=== PATIENT | male | born 1950 | race Caucasian/White ===

== ENCOUNTER 2020-08-12 11:31 | Inpatient (IN) | payer OTHER ==
[~2020-08-12] VITALS: Ht 170.2 cm; Wt 90.7 kg
[2020-08-12] MEDS ORDERED: COZAAR100 MG (11:46)
[2020-08-12] MEDS ORDERED: METFORMIN HCL1000 M2 (11:46)
[2020-08-12] MEDS ORDERED: GLIPIZIDE XL10 MG (11:46)
[2020-08-12] MEDS ORDERED: LANTUS SOL100 UNIT/1 (11:47)
[2020-08-12] MEDS ORDERED: LIPITOR40 M1 (11:47)
[2020-08-12] MEDS ORDERED: HUMALOG100 UNIT/2 (11:47)
[2020-08-12] MEDS ORDERED: PROTONIX20 MG (11:47)
[2020-08-30] MEDS ORDERED: Lantus 1000 UNITS/10 SUBCUTANEO (18:28)
[2020-08-30] MEDS ORDERED: METFORMIN HCL1000 M2 PO (18:28)
[2020-08-30] MEDS ORDERED: INTESTINEX680 M1 PO (18:28)
[2020-08-30] MEDS ORDERED: HUMALOG100 UNIT/1 SUBCUTANEO ×3 (18:28)
[2020-08-30] MEDS ORDERED: CARdura 4MG TABLET PO (18:28)
[2020-08-30] MEDS ORDERED: NASAL MIST126 ML NASAL (18:28)
[2020-08-30] MEDS ORDERED: LEVOFLOXACIN750 MG PO (18:28)
[2020-08-30] MEDS ORDERED: LIPITOR40 M1 PO (18:28)
[2020-08-30] MEDS ORDERED: PEPCID AC20 MG PO (18:28)
[2020-08-30] MEDS ORDERED: BACLOFEN10 MG PO (18:28)
== END 2020-08-31 01:37 | disposition home or self-care (01) | DRG 496 ==
LOC: ER 11:31 → SURH 17:40
PROVIDERS: ADMIT Orthopaedic Surgery; ATTEND Orthopaedic Surgery
PROC: 0QBM0ZZ Excision of Left Tarsal, Open Approach (ICD-10-PCS; 2020-08-14)
PROC: 02HV33Z Insertion of Infusion Device into Superior Vena Cava, Percutaneous Approach (ICD-10-PCS; 2020-08-20)
PROC: 0QPM04Z Removal of Internal Fixation Device from Left Tarsal, Open Approach (ICD-10-PCS; principal; 2020-08-23 17:15)
DX: T84.69XA Infection and inflammatory reaction due to internal fixation device of other site, initial encounter (principal); T81.31XA Disruption of external operation (surgical) wound, not elsewhere classified, initial encounter; L03.116 Cellulitis of left lower limb; L97.424 Non-pressure chronic ulcer of left heel and midfoot with necrosis of bone; N17.8 Other acute kidney failure; Y83.8 Other surgical procedures as the cause of abnormal reaction of the patient, or of later complication, without mention of misadventure at the time of the procedure; E11.621 Type 2 diabetes mellitus with foot ulcer; I10 Essential (primary) hypertension; E86.0 Dehydration; E11.65 Type 2 diabetes mellitus with hyperglycemia; Z79.84 Long term (current) use of oral hypoglycemic drugs